=== PATIENT | male | born 1985 | race Two or more races ===

== ENCOUNTER 2016-07-05 06:47 | Emergency (ER) | payer OTHER ==
[~2016-07-05] VITALS: Ht 177.8 cm; Wt 76.2 kg
--- NOTE | 2016-07-05 06:57 | NUR ---
PT AMBULATORY TO ER BED 7 C/O COUGHING, PT ALSO STATES HE HAD 1 BOUT OF VOMITING LAST NIGHT. PT AOX4 RR EVEN AND UNLABORED. NO SOB NOTED. NAD NOTED. NO NVD AT THIS TIME. PT NOT DIAPHORETIC. PT WAITING FOR MD LEGGETT.
[2016-07-05] MEDS ORDERED: ONDANSETRON 4 MG TAB.RAPDIS ONE (07:14)
[2016-07-05] MEDS: ONDANSETRON 4 MG TAB.RAPDIS SL ONE (07:19)
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
[2016-07-05] MEDS ORDERED: GUAIFENESIN/D-METHORPHAN HB 5 ML UDC ONE (08:41)
[2016-07-05] MEDS: GUAIFENESIN/D-METHORPHAN HB 5 ML UDC PO ONE (08:49)
[2016-07-05 08:50] VITALS: BP 121/71
== END 2016-07-05 08:53 | disposition home or self-care (01) ==
LOC: ER 06:52
DX: J06.9 Acute upper respiratory infection, unspecified (principal); F17.210 Nicotine dependence, cigarettes, uncomplicated; J45.909 Unspecified asthma, uncomplicated; F41.9 Anxiety disorder, unspecified
CPT/HCPCS: 82962-TC; A4606; Q0162; Z7610

== ENCOUNTER 2016-11-09 20:41 | Inpatient (IN) | payer OTHER ==
[~2016-11-09] VITALS: Ht 177.8 cm; Wt 76.7 kg
[2016-11-09] MEDS ORDERED: HYDROMORPHONE 1 MG/1 ML DISP.SYRIN ONE (21:17)
[2016-11-09] MEDS ORDERED: ONDANSETRON HCL/PF 4 MG/2 ML VIAL ONE (21:17)
[2016-11-09 21:29] LABS: BASOPHILS # (AUTO) 0.3 /CMM (0.0-0.2); BASOPHILS % (AUTO) 1.4 % (0.0-2.0); EOSINOPHILS # (AUTO) 0.2 /CMM (0.0-0.7); EOSINOPHILS % (AUTO) 0.9 % (0.0-6.0); HEMATOCRIT 47 % (39-51); HEMOGLOBIN 15.8 g/dL (13.5-17.5); LYMPHOCYTES # (AUTO) 3.8 /CMM (0.8-4.8); LYMPHOCYTES % (AUTO) 17.5 % (20.0-44.0); MEAN CORPUSCULAR HEMOGLOBIN 30 PG (26.0-33.0); MEAN CORPUSCULAR HGB CONC 34 g/dl (31.0-36.0); MEAN CORPUSCULAR VOLUME 90 fL (80-96); MONOCYTES # (AUTO) 1.7 /CMM (0.1-1.30); NEUTROPHILS # (AUTO) 15.7 /CMM (1.8-8.9); NEUTROPHILS % (AUTO) 72.2 % (43.0-81.0); PLATELET COUNT (AUTO) 196 /CMM (150-450); RDW COEFFICIENT OF VARIATION 12.2 (11.5-15.0); RED BLOOD CELL COUNT(AUTO) 5.23 MIL/uL (4.5-6.0); WHITE BLOOD COUNT (AUTO) 21.7 K/uL (4.3-11.0)
[2016-11-09] MEDS ORDERED: IV NS 0.9% 1,000 ML BAG IV ONE (21:30)
[2016-11-09] MEDS ORDERED: ONDANSETRON HCL/PF 4 MG/2 ML VIAL IVP ONE (21:30)
[2016-11-09] MEDS ORDERED: HYDROMORPHONE INJ 2 MG/ML DISP.SYRIN IV ONE (21:30)
[2016-11-09 21:39] LABS: CALCIUM, SERUM 8.9 mg/dL (8.5-10.1); CREATININE 1.2 mg/dL (0.6-1.3); INR 1.05 (0.87-1.13); POTASSIUM 4.6 mmol/L (3.5-5.1); PROTHROMBIN TIME 10.9 SECS (9.5-12.7)
[2016-11-09 21:45] LABS: ALBUMIN 4.4 g/dL (3.4-5.0); BILIRUBIN,TOTAL 0.3 mg/dL (0.2-1.0)
[2016-11-09] MEDS ORDERED: IOHEXOL-300 100 ML VIAL IV ONE (21:48)
[2016-11-09] MEDS ORDERED: IV NS 0.9% 250 ML IV ONE (21:48)
[2016-11-09] MEDS ORDERED: PIPERACILLIN /TAZOBACTAM 3.375 G VIAL IV ONE (23:17)
[2016-11-09] MEDS ORDERED: PIPERACILLIN /TAZOBACTAM 3.375 G in IV D5W 50 ML IV ONE (23:30)
[2016-11-10] VITALS (10 sets, daily range): BP systolic 110–126; BP diastolic 53–73
[2016-11-10] MEDS ORDERED: MIDAZOLAM HCL 2 MG/2ML VIAL ONE (00:14)
[2016-11-10] MEDS ORDERED: FENTANYL PF 250MCG/5ML AMPUL ONE (00:14)
[2016-11-10] MEDS ORDERED: ROCURONIUM BROMIDE 50 MG/5 ML ONE ×2 (00:15→02:19)
[2016-11-10] MEDS ORDERED: SUCCINYLCHOLINE CHLORIDE 20 MG/ML VIAL ONE (00:15)
[2016-11-10] MEDS ORDERED: BUPIVACAINE MPF W/EPI 0.25% 30 ML VIAL ONE (00:16)
[2016-11-10] MEDS ORDERED: LIDOCAINE 0.5% HCL 50 ML VIAL ONE (00:16)
[2016-11-10] MEDS ORDERED: FENTANYL PF 100MCG/2ML AMPUL ONE ×2 (01:42→04:29)
[2016-11-10 01:44] LABS: APPEARANCE,URINE CLEAR (CLEAR); BILIRUBIN,URINE NEGATIVE (NEGATIVE); BLOOD, URINE NEGATIVE Ery/uL (NEGATIVE); COLOR,URINE YELLOW (YELLOW); KETONES,URINE 1+ (NEGATIVE); LEUKOCYTE ESTERASE ,URINE NEGATIVE (NEGATIVE); NITRITE, URINE NEGATIVE (NEGATIVE); PH,URINE 5.5 (5.0-8.0); PROTEIN,URINE NEGATIVE (NEGATIVE); UGLUCOSE NEGATIVE (NEGATIVE); UROBILINOGEN,URINE 0.2 EU/dL (0.2)
[2016-11-10 01:52] LABS: BACTERIA,URINE None seen /HPF (None Seen); RBC,URINE NONE SEEN /HPF (0-2); SQUAMOUS EPITHELIAL CELL,UR None Seen /HPF (None Seen); WBC,URINE 0-2 /HPF (0-3)
[2016-11-10] MEDS ORDERED: ANESTHESIA TRAY IN PYXIS 1 EA TRAY MC ONE (04:27)
[2016-11-10] MEDS ORDERED: LORAZEPAM INJ 2 MG/ML VIAL IV PRN (06:00)
[2016-11-10] MEDS ORDERED: HYDROMORPHONE 1 MG/1 ML DISP.SYRIN ONE (06:04)
[2016-11-10] MEDS ORDERED: PIPERACILLIN /TAZOBACTAM 3.375 G VIAL IV ONE (06:05)
[2016-11-10] MEDS: PIPERACILLIN /TAZOBACTAM 3.375 G in IV D5W 50 ML IV SCH ×3 (06:13→18:13)
[2016-11-10] MEDS: HYDROMORPHONE 1 MG/1 ML DISP.SYRIN IV PRN ×5 (06:13→21:52)
[2016-11-10] MEDS ORDERED: IV PREMIX D5 1/2NS + KCL 1,000 ML IV ONE (06:19)
[2016-11-10 06:47] LABS: BASOPHILS # (AUTO) 0.1 /CMM (0.0-0.2); BASOPHILS % (AUTO) 0.6 % (0.0-2.0); EOSINOPHILS % (AUTO) 0.1 % (0.0-6.0); HEMATOCRIT 42 % (39-51); HEMOGLOBIN 14.2 g/dL (13.5-17.5); LYMPHOCYTES # (AUTO) 0.8 /CMM (0.8-4.8); MEAN CORPUSCULAR HEMOGLOBIN 31 PG (26.0-33.0); MEAN CORPUSCULAR HGB CONC 34 g/dl (31.0-36.0); MEAN CORPUSCULAR VOLUME 91 fL (80-96); MONOCYTES # (AUTO) 0.8 /CMM (0.1-1.30); MONOCYTES % (AUTO) 4.3 % (2.0-12.0); NEUTROPHILS # (AUTO) 17.8 /CMM (1.8-8.9); PLATELET COUNT (AUTO) 163 /CMM (150-450); RDW COEFFICIENT OF VARIATION 12.8 (11.5-15.0); RED BLOOD CELL COUNT(AUTO) 4.61 MIL/uL (4.5-6.0); WHITE BLOOD COUNT (AUTO) 19.5 K/uL (4.3-11.0)
[2016-11-10] MEDS: Potassium Chloride 20 MEQ in IV D5/0.45 NACL 1,000 ML IV PRN ×2 (06:49→16:32)
[2016-11-10 07:06] LABS: CALCIUM, SERUM 7.9 mg/dL (8.5-10.1); POTASSIUM 4.4 mmol/L (3.5-5.1)
[2016-11-10] MEDS: PANTOPRAZOLE 40 MG VIAL IV SCH (10:17)
[2016-11-10] MEDS: ONDANSETRON HCL/PF 4 MG/2 ML VIAL IV PRN (12:48)
[2016-11-11] VITALS: BP 126/68
[2016-11-11] MEDS: HYDROMORPHONE 1 MG/1 ML DISP.SYRIN IV PRN ×9 (00:30→22:55)
[2016-11-11] MEDS: PIPERACILLIN /TAZOBACTAM 3.375 G in IV D5W 50 ML IV SCH ×5 (00:30→23:00)
[2016-11-11] MEDS: Potassium Chloride 20 MEQ in IV D5/0.45 NACL 1,000 ML IV PRN ×2 (03:35→14:53)
[2016-11-11 04:00] VITALS: BP 121/78
[2016-11-11 06:43] LABS: BASOPHILS % (AUTO) 0.2 % (0.0-2.0); EOSINOPHILS # (AUTO) 0.1 /CMM (0.0-0.7); EOSINOPHILS % (AUTO) 0.4 % (0.0-6.0); HEMATOCRIT 38 % (39-51); LYMPHOCYTES # (AUTO) 2.3 /CMM (0.8-4.8); LYMPHOCYTES % (AUTO) 16.6 % (20.0-44.0); MEAN CORPUSCULAR HEMOGLOBIN 31 PG (26.0-33.0); MEAN CORPUSCULAR HGB CONC 34 g/dl (31.0-36.0); MEAN CORPUSCULAR VOLUME 91 fL (80-96); MONOCYTES % (AUTO) 7.7 % (2.0-12.0); NEUTROPHILS # (AUTO) 10.3 /CMM (1.8-8.9); NEUTROPHILS % (AUTO) 75.1 % (43.0-81.0); PLATELET COUNT (AUTO) 145 /CMM (150-450); RDW COEFFICIENT OF VARIATION 12.9 (11.5-15.0); RED BLOOD CELL COUNT(AUTO) 4.21 MIL/uL (4.5-6.0); WHITE BLOOD COUNT (AUTO) 13.7 K/uL (4.3-11.0)
[2016-11-11 06:50] LABS: CALCIUM, SERUM 7.8 mg/dL (8.5-10.1); CREATININE 1.1 mg/dL (0.6-1.3)
[2016-11-11 08:00] VITALS: BP 115/67
[2016-11-11] MEDS: PANTOPRAZOLE 40 MG VIAL IV SCH (08:45)
[2016-11-11] MEDS: ENOXAPARIN SODIUM 40 MG/0.4 ML DISP.SYRIN SQ SCH (09:36)
[2016-11-11] MEDS: METOCLOPRAMIDE HCL 10 MG/2 ML VIAL IV SCH ×3 (09:48→20:06)
[2016-11-11 16:00] VITALS: BP 130/63
[2016-11-11 20:00] VITALS: BP 126/74
[2016-11-12] MEDS: HYDROMORPHONE 1 MG/1 ML DISP.SYRIN IV PRN ×9 (01:57→22:13)
[2016-11-12] MEDS: METOCLOPRAMIDE HCL 10 MG/2 ML VIAL IV SCH ×4 (01:59→23:38)
[2016-11-12] MEDS: PIPERACILLIN /TAZOBACTAM 3.375 G in IV D5W 50 ML IV SCH ×4 (06:14→23:39)
[2016-11-12 06:54] LABS: BASOPHILS % (AUTO) 0.2 % (0.0-2.0); EOSINOPHILS # (AUTO) 0.1 /CMM (0.0-0.7); EOSINOPHILS % (AUTO) 1.1 % (0.0-6.0); HEMATOCRIT 38 % (39-51); HEMOGLOBIN 12.7 g/dL (13.5-17.5); LYMPHOCYTES # (AUTO) 2.2 /CMM (0.8-4.8); LYMPHOCYTES % (AUTO) 17.7 % (20.0-44.0); MEAN CORPUSCULAR HEMOGLOBIN 31 PG (26.0-33.0); MEAN CORPUSCULAR HGB CONC 34 g/dl (31.0-36.0); MEAN CORPUSCULAR VOLUME 90 fL (80-96); MONOCYTES % (AUTO) 7.6 % (2.0-12.0); NEUTROPHILS # (AUTO) 9.3 /CMM (1.8-8.9); NEUTROPHILS % (AUTO) 73.4 % (43.0-81.0); PLATELET COUNT (AUTO) 150 /CMM (150-450); RDW COEFFICIENT OF VARIATION 12.7 (11.5-15.0); RED BLOOD CELL COUNT(AUTO) 4.15 MIL/uL (4.5-6.0); WHITE BLOOD COUNT (AUTO) 12.6 K/uL (4.3-11.0)
[2016-11-12 06:58] LABS: CALCIUM, SERUM 8.1 mg/dL (8.5-10.1); CREATININE 0.9 mg/dL (0.6-1.3); MAGNESIUM 1.6 mg/dL (1.8-2.4); POTASSIUM 3.4 mmol/L (3.5-5.1)
[2016-11-12 08:00] VITALS: BP 117/62
[2016-11-12] MEDS ORDERED: POTASSIUM CHLORIDE 10 MEQ/50 ML PREMIXED IVPB FOR PERIPHERAL LINE IV ONE (09:00)
[2016-11-12] MEDS: Potassium Chloride 20 MEQ in IV D5/0.45 NACL 1,000 ML IV PRN ×4 (09:27→21:12)
[2016-11-12] MEDS: ENOXAPARIN SODIUM 40 MG/0.4 ML DISP.SYRIN SQ SCH (09:27)
[2016-11-12] MEDS: PANTOPRAZOLE 40 MG VIAL IV SCH (09:27)
[2016-11-12] MEDS: Magnesium 1GM/D5W 100ML PREMIX 100 ML IV SCH ×2 (09:27→10:47)
[2016-11-12] MEDS: POTASSIUM CL. PREMIX PERIPHER. 50 ML IV SCH ×2 (09:28→10:47)
[2016-11-12 16:00] VITALS: BP 133/79
[2016-11-12 20:11] VITALS: BP 118/71
[2016-11-12 22:00] VITALS: BP 118/71
[2016-11-13] MEDS: HYDROMORPHONE 1 MG/1 ML DISP.SYRIN IV PRN ×10 (00:55→23:44)
[2016-11-13] MEDS: PIPERACILLIN /TAZOBACTAM 3.375 G in IV D5W 50 ML IV SCH ×4 (05:16→23:43)
[2016-11-13] MEDS: METOCLOPRAMIDE HCL 10 MG/2 ML VIAL IV SCH ×4 (05:16→23:43)
[2016-11-13 06:38] LABS: BASOPHILS % (AUTO) 0.4 % (0.0-2.0); EOSINOPHILS # (AUTO) 0.2 /CMM (0.0-0.7); EOSINOPHILS % (AUTO) 2.4 % (0.0-6.0); HEMATOCRIT 40 % (39-51); HEMOGLOBIN 13.4 g/dL (13.5-17.5); LYMPHOCYTES # (AUTO) 2.1 /CMM (0.8-4.8); LYMPHOCYTES % (AUTO) 20.7 % (20.0-44.0); MEAN CORPUSCULAR HEMOGLOBIN 31 PG (26.0-33.0); MEAN CORPUSCULAR HGB CONC 34 g/dl (31.0-36.0); MEAN CORPUSCULAR VOLUME 91 fL (80-96); MONOCYTES # (AUTO) 0.7 /CMM (0.1-1.30); MONOCYTES % (AUTO) 7.2 % (2.0-12.0); NEUTROPHILS # (AUTO) 7.1 /CMM (1.8-8.9); NEUTROPHILS % (AUTO) 69.3 % (43.0-81.0); PLATELET COUNT (AUTO) 179 /CMM (150-450); RDW COEFFICIENT OF VARIATION 12.6 (11.5-15.0); RED BLOOD CELL COUNT(AUTO) 4.35 MIL/uL (4.5-6.0); WHITE BLOOD COUNT (AUTO) 10.3 K/uL (4.3-11.0)
[2016-11-13 06:46] LABS: CALCIUM, SERUM 8.7 mg/dL (8.5-10.1); MAGNESIUM 1.9 mg/dL (1.8-2.4); POTASSIUM 3.8 mmol/L (3.5-5.1)
[2016-11-13 08:00] VITALS: BP 111/58
[2016-11-13] MEDS: PANTOPRAZOLE 40 MG VIAL IV SCH (08:30)
[2016-11-13] MEDS: ENOXAPARIN SODIUM 40 MG/0.4 ML DISP.SYRIN SQ SCH (08:31)
[2016-11-13] MEDS: Potassium Chloride 20 MEQ in IV D5/0.45 NACL 1,000 ML IV PRN ×2 (08:44→23:42)
[2016-11-13 16:04] VITALS: BP 118/66
[2016-11-13 20:07] VITALS: BP 125/79
[2016-11-13 22:00] VITALS: BP 125/79
[2016-11-14] MEDS: HYDROMORPHONE 1 MG/1 ML DISP.SYRIN IV PRN ×8 (03:03→22:40)
[2016-11-14] MEDS: METOCLOPRAMIDE HCL 10 MG/2 ML VIAL IV SCH ×3 (05:45→17:25)
[2016-11-14] MEDS: PIPERACILLIN /TAZOBACTAM 3.375 G in IV D5W 50 ML IV SCH ×3 (05:46→17:25)
[2016-11-14 08:00] VITALS: BP 124/69
[2016-11-14] MEDS: PANTOPRAZOLE 40 MG VIAL IV SCH (08:59)
[2016-11-14] MEDS: ENOXAPARIN SODIUM 40 MG/0.4 ML DISP.SYRIN SQ SCH (09:01)
[2016-11-14] MEDS: ONDANSETRON HCL/PF 4 MG/2 ML VIAL IV PRN (15:00)
[2016-11-14] MEDS: Potassium Chloride 20 MEQ in IV D5/0.45 NACL 1,000 ML IV PRN (15:00)
[2016-11-14 16:00] VITALS: BP 124/74
[2016-11-14 20:00] VITALS: BP_SYST 129; BP_SYST 144; BP_DIAS 77; BP_DIAS 82
[2016-11-14 22:00] VITALS: BP 129/77
[2016-11-15] MEDS: METOCLOPRAMIDE HCL 10 MG/2 ML VIAL IV SCH ×3 (00:04→11:46)
[2016-11-15] MEDS: PIPERACILLIN /TAZOBACTAM 3.375 G in IV D5W 50 ML IV SCH ×3 (00:05→11:46)
[2016-11-15] MEDS: Potassium Chloride 20 MEQ in IV D5/0.45 NACL 1,000 ML IV PRN (01:01)
[2016-11-15] MEDS: HYDROMORPHONE 1 MG/1 ML DISP.SYRIN IV PRN ×7 (01:01→16:20)
[2016-11-15 07:22] LABS: BASOPHILS % (AUTO) 0.3 % (0.0-2.0); EOSINOPHILS # (AUTO) 0.4 /CMM (0.0-0.7); EOSINOPHILS % (AUTO) 3.8 % (0.0-6.0); HEMATOCRIT 42 % (39-51); HEMOGLOBIN 14.1 g/dL (13.5-17.5); LYMPHOCYTES # (AUTO) 1.8 /CMM (0.8-4.8); LYMPHOCYTES % (AUTO) 15.6 % (20.0-44.0); MEAN CORPUSCULAR HEMOGLOBIN 30 PG (26.0-33.0); MEAN CORPUSCULAR HGB CONC 33 g/dl (31.0-36.0); MEAN CORPUSCULAR VOLUME 91 fL (80-96); NEUTROPHILS # (AUTO) 8.1 /CMM (1.8-8.9); NEUTROPHILS % (AUTO) 71.3 % (43.0-81.0); PLATELET COUNT (AUTO) 238 /CMM (150-450); RDW COEFFICIENT OF VARIATION 12.3 (11.5-15.0); RED BLOOD CELL COUNT(AUTO) 4.64 MIL/uL (4.5-6.0); WHITE BLOOD COUNT (AUTO) 11.4 K/uL (4.3-11.0)
[2016-11-15 07:29] LABS: CALCIUM, SERUM 8.7 mg/dL (8.5-10.1); CREATININE 1.1 mg/dL (0.6-1.3); POTASSIUM 4.3 mmol/L (3.5-5.1)
[2016-11-15 08:00] VITALS: BP 120/74
[2016-11-15] MEDS: PANTOPRAZOLE 40 MG VIAL IV SCH (08:43)
[2016-11-15] MEDS: ENOXAPARIN SODIUM 40 MG/0.4 ML DISP.SYRIN SQ SCH (08:52)
[2016-11-15] MEDS ORDERED: HYDR-552 PO (08:55)
[2016-11-15] MEDS: ONDANSETRON HCL/PF 4 MG/2 ML VIAL IV PRN (11:46)
[2016-11-15 16:00] VITALS: BP 129/84
== END 2016-11-15 17:20 | disposition home or self-care (01) | DRG 224 ==
LOC: ER 20:42 → MED 23:12
PROVIDERS: ADMIT Internal Medicine; ATTEND Internal Medicine
DX: K56.2 Volvulus (principal); Q43.3 Congenital malformations of intestinal fixation; D72.829 Elevated white blood cell count, unspecified; F41.9 Anxiety disorder, unspecified; K66.0 Peritoneal adhesions (postprocedural) (postinfection); E83.42 Hypomagnesemia; E87.6 Hypokalemia; J45.909 Unspecified asthma, uncomplicated; K56.7 Ileus, unspecified; F12.90 Cannabis use, unspecified, uncomplicated
CPT/HCPCS: 36415; 74000-TC; 80048-TC; 80076-TC; 81000-TC; 83605-TC; 83690-TC; 83735-TC; 85025-TC; 85730-TC; 86850-TC; 87040-TC; 87081-TC; 94799-TC; A4606; A6209; A6402; C9113; J0330; J1100; J1170; J1650; J1885; J2250; J2405; J2543; J2704; J2710; J2765; J3010; J3475; J3480; J3490; J7030; J7050; J7060; Q9967; Z7610

== ENCOUNTER 2017-08-16 22:12 | Emergency (ER) | payer OTHER ==
[~2017-08-16] VITALS: Ht 177.8 cm; Wt 68.0 kg
[~2017-08-16 22:12] MED LIST: HYDR-552 PO
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
--- NOTE | 2017-08-16 23:20 | NUR ---
BEING SEEN BY
[2017-08-16] MEDS ORDERED: HYDROCODONE/APAP 5/325MG 1 EACH TABLET ONE (23:51)
[2017-08-16] MEDS ORDERED: LORAZEPAM 1 MG TABLET ONE (23:52)
--- NOTE | 2017-08-16 23:59 | NUR ---
ORDERED MEDS GIVEN
--- NOTE | 2017-08-16 23:59 | NUR ---
Pt TAKEN DOWN FOR XR
[2017-08-17] MEDS ORDERED: LORAZEPAM 1 MG TABLET PO ONE
--- NOTE | 2017-08-17 00:50 | NUR ---
Pt RETURNED FROM RADIOLOGY.
--- NOTE | 2017-08-17 01:11 | NUR ---
Pt STATES THAT HIS ANXIETY IS BETTER, BUT THE PAIN IS NOT.
[2017-08-17 01:19] VITALS: BP 119/68
[2017-08-17] MEDS ORDERED: HYDROCODONE/APAP 5/325MG 1 EACH TABLET PO ONE ×2 (02:30)
[2017-08-17] MEDS ORDERED: HYDROCODONE/APAP 5/325MG 1 EACH TABLET ONE (03:01)
--- NOTE | 2017-08-17 03:16 | NUR ---
Patient discharged to home in stable condition. Written and verbal after care instructions given. Patient verbalizes understanding of instruction. sling provided for left arm. pt left with taxi. walked out with steady gait.
== END 2017-08-17 02:51 | disposition home or self-care (01) ==
LOC: ER 22:14
DX: F41.9 Anxiety disorder, unspecified (principal); M79.1 Myalgia; K44.9 Diaphragmatic hernia without obstruction or gangrene; F17.200 Nicotine dependence, unspecified, uncomplicated; V49.59XA Passenger injured in collision with other motor vehicles in traffic accident, initial encounter; Y93.89 Activity, other specified; Y92.413 State road as the place of occurrence of the external cause; Y99.8 Other external cause status
CPT/HCPCS: 70450-TC; 72125-TC; 72128-TC; 73030-TC; 73080-TC; 73502; 73564-TC; A4606; Z7610

== ENCOUNTER 2017-09-20 16:39 | Emergency (ER) | payer OTHER ==
[~2017-09-20] VITALS: Ht 177.8 cm; Wt 68.0 kg
--- NOTE | 2017-09-20 16:45 | NUR ---
LEFT SIDED CHEST PAIN RADIATES TO LEFT ARM SINCE LAST NIGHT. A/OX 4, BREATHING EVEN AND UNLABORED. SKIN WARM AND DRY. NO SOB, NAD, VITALS STABLE. SAFETY AND COMFORT MEASURES IN PLACE. AWAITING MD ORDERS.
[2017-09-20] MEDS ORDERED: ALPRAZOLAM 0.5 MG TABLET ONE (17:26)
[2017-09-20] MEDS ORDERED: ALPRAZOLAM 0.5 MG TABLET PO ONE (17:30)
[2017-09-20 17:41] VITALS: BP 112/64
--- NOTE | 2017-09-20 17:42 | NUR ---
Patient discharged to home in stable condition. Written and verbal after care instructions given. Patient verbalizes understanding of instruction.
== END 2017-09-20 17:41 | disposition home or self-care (01) ==
LOC: ER 16:41
DX: R07.89 Other chest pain (principal); F41.9 Anxiety disorder, unspecified; F17.200 Nicotine dependence, unspecified, uncomplicated; J45.909 Unspecified asthma, uncomplicated; Z60.2 Problems related to living alone
CPT/HCPCS: A4606; Z7610

== ENCOUNTER 2018-08-07 11:48 | Emergency (ER) | payer OTHER ==
[~2018-08-07] VITALS: Ht 172.7 cm; Wt 74.8 kg
[~2018-08-07 11:48] MED LIST changes: +ALPR0.5T8 PO; +CYCL10TA9 PO; +HYDR-4354 PO; -HYDR-552 PO
[2018-08-07] MEDS ORDERED: ALPRAZOLAM 0.5 MG (11:55)
[2018-08-07] MEDS ORDERED: CITALOPRAM HYDROBROMIDE 20 MG (11:55)
[2018-08-07] MEDS ORDERED: D AMPHETAMINE SALT COMBO 20 MG (11:55)
[2018-08-07] MEDS ORDERED: KETOROLAC TROMETHAMINE INJ 30 MG/ML VIAL ONE (12:58)
[2018-08-07] MEDS: KETOROLAC TROMETHAMINE INJ 30 MG/ML VIAL IM ONE (13:00)
[2018-08-07 13:23] VITALS: BP 128/84
--- NOTE | 2018-08-07 13:24 | NUR ---
Patient discharged to home in stable condition. Written and verbal after care instructions given. Patient verbalizes understanding of instruction.
== END 2018-08-07 13:24 | disposition home or self-care (01) ==
LOC: ER 11:51
DX: S44.8X2A Injury of other nerves at shoulder and upper arm level, left arm, initial encounter (principal); S14.8XXA Injury of other specified nerves of neck, initial encounter; J45.909 Unspecified asthma, uncomplicated; F41.9 Anxiety disorder, unspecified; F17.200 Nicotine dependence, unspecified, uncomplicated; Z98.890 Other specified postprocedural states; Z60.2 Problems related to living alone; X58.XXXA Exposure to other specified factors, initial encounter; Y93.89 Activity, other specified; Y92.89 Other specified places as the place of occurrence of the external cause; Y99.8 Other external cause status
CPT/HCPCS: 72050; 73030; 96372; 99283; J1885

== ENCOUNTER 2018-08-12 15:15 | Emergency (ER) | payer OTHER ==
[~2018-08-12] VITALS: Ht 172.7 cm; Wt 66.7 kg
[~2018-08-12 15:15] MED LIST changes: +ALPRAZOLAM 0.5 MG; +CITALOPRAM HYDROBROMIDE 20 MG; +D AMPHETAMINE SALT COMBO 20 MG
[2018-08-12 15:36] VITALS: BP 133/77
== END 2018-08-12 16:21 | disposition home or self-care (01) ==
LOC: ER 15:15
DX: L73.8 Other specified follicular disorders (principal); J06.9 Acute upper respiratory infection, unspecified; J45.909 Unspecified asthma, uncomplicated; F41.9 Anxiety disorder, unspecified; F17.200 Nicotine dependence, unspecified, uncomplicated; F12.10 Cannabis abuse, uncomplicated; Z98.890 Other specified postprocedural states; Z60.2 Problems related to living alone

== ENCOUNTER 2019-10-13 15:11 | Emergency (ER) | payer OTHER ==
[~2019-10-13] VITALS: Ht 170.2 cm; Wt 74.8 kg
[2019-10-13 15:14] VITALS: BP 131/79
[2019-10-13] MEDS ORDERED: ALBUTEROL SULFATE 8 GM HFA.AER.AD IH ONE (16:00)
[2019-10-13] MEDS ORDERED: predniSONE 50 MG TABLET PO ONE (16:00)
[2019-10-13] MEDS ORDERED: predniSONE 20 MG TABLET ONE (16:03)
[2019-10-13] MEDS ORDERED: predniSONE 10 MG TABLET ONE (16:03)
--- NOTE | 2019-10-13 16:40 | NUR ---
Patient discharged to home in stable condition. Written and verbal after care instructions given. Patient verbalizes understanding of instruction. Pt ambulatory with a steady gait
== END 2019-10-13 16:43 | disposition home or self-care (01) ==
LOC: ER 15:11
DX: J45.901 Unspecified asthma with (acute) exacerbation (principal); Z98.890 Other specified postprocedural states; Z60.2 Problems related to living alone; Z79.899 Other long term (current) drug therapy
CPT/HCPCS: 99283; J7512 ×2

== ENCOUNTER 2019-12-27 09:44 | Emergency (ER) | payer OTHER ==
[~2019-12-27] VITALS: Ht 180.3 cm; Wt 74.8 kg
[2019-12-27 09:49] VITALS: BP 162/81
[2019-12-27] MEDS ORDERED: LIDOCAINE 2% 20 ML MDV ONE (09:55)
--- NOTE | 2019-12-27 09:59 | NUR ---
AT [facility]
[2019-12-27] MEDS ORDERED: ALPRAZOLAM 0.5 MG TABLET ONE (10:13)
--- NOTE | 2019-12-27 10:13 | NUR ---
XANAX 0.5MG PO X 1 DOSE ORDERED BY MD. MEDICATION GIVEN PER ORDERED. UNABLE TO ALIN IN [facility].
--- NOTE | 2019-12-27 10:26 | NUR ---
Patient discharged to home in stable condition. Written and verbal after care instructions given. Patient verbalizes understanding of instruction. Pt ambulatory with a steady gait
[2019-12-27] MEDS ORDERED: ALPRAZOLAM 0.5 MG TABLET PO ONE (10:30)
== END 2019-12-27 10:28 | disposition home or self-care (01) ==
LOC: ER 09:49
DX: S01.112A Laceration without foreign body of left eyelid and periocular area, initial encounter (principal); J45.909 Unspecified asthma, uncomplicated; F41.9 Anxiety disorder, unspecified; F17.200 Nicotine dependence, unspecified, uncomplicated; Z60.2 Problems related to living alone; Z79.899 Other long term (current) drug therapy; Z98.890 Other specified postprocedural states; W01.0XXA Fall on same level from slipping, tripping and stumbling without subsequent striking against object, initial encounter; Y93.89 Activity, other specified; Y92.89 Other specified places as the place of occurrence of the external cause; Y99.8 Other external cause status
CPT/HCPCS: 12011; 99283; J3490

== ENCOUNTER 2020-01-02 11:44 | Emergency (ER) | payer OTHER ==
[~2020-01-02] VITALS: Ht 177.8 cm; Wt 74.8 kg
[2020-01-02 12:09] VITALS: BP 123/70
--- NOTE | 2020-01-02 12:30 | NUR ---
SUTURE REMOVED. 1 SUTURE
--- NOTE | 2020-01-02 12:36 | NUR ---
Patient discharged to home in stable condition. Written and verbal after care instructions given. Patient verbalizes understanding of instruction. Pt ambulatory with a steady gait
== END 2020-01-02 12:37 | disposition home or self-care (01) ==
LOC: ER 11:45
DX: S01.112D Laceration without foreign body of left eyelid and periocular area, subsequent encounter (principal); J45.909 Unspecified asthma, uncomplicated; F41.9 Anxiety disorder, unspecified; F12.90 Cannabis use, unspecified, uncomplicated; Z98.890 Other specified postprocedural states; Z60.2 Problems related to living alone; Z79.899 Other long term (current) drug therapy; X58.XXXD Exposure to other specified factors, subsequent encounter

== ENCOUNTER 2020-01-18 10:26 | Emergency (ER) | payer OTHER ==
[~2020-01-18] VITALS: Ht 177.8 cm; Wt 77.1 kg
--- NOTE | 2020-01-18 10:26 | NUR ---
PT BIB SELF C/O LOWER ABDOMINAL PAIN. PT IS AAOX4, NOT IN RESPIRATORY DISTRESS, V/S STABLE, KEPT RESTED AND COMFORTABLE. WILL CONTINUE TO MONITOR.
--- NOTE | 2020-01-18 10:56 | NUR ---
SEEN AND EXAMINED BY .
[2020-01-18] MEDS ORDERED: KETOROLAC TROMETHAMINE INJ 30 MG/ML VIAL IV ONE (11:00)
[2020-01-18] MEDS ORDERED: KETOROLAC TROMETHAMINE 15 MG/ML VIAL ONE (11:08)
--- NOTE | 2020-01-18 11:10 | NUR ---
IV LINE ESTABLISHED BLOOD DRAWN AND SENT TO LAB.
[2020-01-18 11:27] LABS: BASOPHILS # (AUTO) 0.1 /CMM (0.0-0.2); BASOPHILS % (AUTO) 1.7 % (0.0-2.0); EOSINOPHILS % (AUTO) 1.9 % (0.0-6.0); HEMATOCRIT 43 % (39-51); HEMOGLOBIN 14.4 g/dL (13.5-17.5); LYMPHOCYTES # (AUTO) 1.4 /CMM (0.8-4.8); LYMPHOCYTES % (AUTO) 22.4 % (20.0-44.0); MEAN CORPUSCULAR HGB CONC 34 g/dl (31.0-36.0); MEAN CORPUSCULAR VOLUME 96 fL (80-96); MONOCYTES # (AUTO) 0.5 /CMM (0.1-1.30); MONOCYTES % (AUTO) 8.4 % (2.0-12.0); NEUTROPHILS # (AUTO) 4.1 /CMM (1.8-8.9); NEUTROPHILS % (AUTO) 65.6 % (43.0-81.0); PLATELET COUNT (AUTO) 216 /CMM (150-450); RED BLOOD CELL COUNT(AUTO) 4.45 MIL/uL (4.5-6.0); WHITE BLOOD COUNT (AUTO) 6.3 K/uL (4.3-11.0)
[2020-01-18 12:03] LABS: CALCIUM, SERUM 8.6 mg/dL (8.5-10.1); CREATININE 0.9 mg/dL (0.6-1.3); POTASSIUM 3.8 mmol/L (3.5-5.1)
[2020-01-18 12:09] LABS: ALBUMIN 3.9 g/dL (3.4-5.0); BILIRUBIN,DIRECT 0.1 mg/dL (0.0-0.2); BILIRUBIN,TOTAL 0.6 mg/dL (0.2-1.0); TOTAL PROTEIN, SERUM 7.3 g/dL (6.4-8.2)
[2020-01-18] MEDS ORDERED: IOHEXOL-300 100 ML VIAL IV ONE (12:26)
[2020-01-18] MEDS ORDERED: IV NS 0.9% 250 ML IV ONE (12:26)
[2020-01-18] MEDS ORDERED: CT SWABBABLE VALVE TRANS SET 1 EA INFUS.SET MC ONE (12:26)
--- NOTE | 2020-01-18 12:35 | NUR ---
BACK FROM CT SCAN
[2020-01-18] MEDS ORDERED: LIDOCAINE VISCOUS 2% UD 15 ML UDC MM ONE (13:30)
[2020-01-18] MEDS ORDERED: MAG HYDROX/AL HYDROX/SIMETH 30 ML UDC PO ONE (13:30)
[2020-01-18] MEDS ORDERED: LIDOCAINE VISCOUS 2% UD 15 ML UDC ONE (13:44)
[2020-01-18] MEDS ORDERED: MAG HYDROX/AL HYDROX/SIMETH 30 ML UDC ONE (13:44)
[2020-01-18 13:55] VITALS: BP 129/70
--- NOTE | 2020-01-18 13:55 | NUR ---
IV removed. Catheter intact and site benign. Pressure and 4x4 applied to site. No bleeding noted.Patient discharged to home in stable condition. Written and verbal after care instructions given. Patient verbalizes understanding of instruction.
== END 2020-01-18 13:56 | disposition home or self-care (01) ==
LOC: ER 10:28
DX: R10.11 Right upper quadrant pain (principal); R10.12 Left upper quadrant pain; R14.0 Abdominal distension (gaseous); R11.0 Nausea; J45.909 Unspecified asthma, uncomplicated; Z98.890 Other specified postprocedural states; Z60.2 Problems related to living alone; Z79.899 Other long term (current) drug therapy
CPT/HCPCS: 36415; 74177; 80048; 80076; 83690; 85025; 85730; 96374; 99285; J1885; J7050; Q9967

== ENCOUNTER 2020-01-29 16:55 | Emergency (ER) | payer OTHER ==
[~2020-01-29] VITALS: Ht 177.8 cm; Wt 74.8 kg
--- NOTE | 2020-01-29 17:15 | NUR ---
BED 6 PT BIB SELF C/O SOB X1 WEEK. HX OF ASTHMA. VS CHECKED. AWAITING MD LEGGETT.
[2020-01-29] MEDS ORDERED: predniSONE 20 MG TABLET ONE (17:21)
[2020-01-29] MEDS ORDERED: IPRATROPIUM NEB FS 0.5 MG/2.5 ML AMPUL.NEB NEB ONE (17:30)
[2020-01-29] MEDS ORDERED: predniSONE 20 MG TABLET PO ONE (17:30)
[2020-01-29] MEDS ORDERED: ALBUTEROL FS 2.5 MG/3 ML VIAL.NEB NEB ONE (17:30)
[2020-01-29] MEDS ORDERED: IPRATROPIUM NEB FS 0.5 MG/2.5 ML AMPUL.NEB ONE (17:39)
[2020-01-29] MEDS ORDERED: ALBUTEROL FS 2.5 MG/3 ML VIAL.NEB ONE (17:39)
--- NOTE | 2020-01-29 19:04 | NUR ---
DC Patient discharged to home in stable condition. Written and verbal after care instructions given. Patient verbalizes understanding of instruction.
[2020-01-29 19:16] VITALS: BP 122/83
== END 2020-01-29 19:17 | disposition home or self-care (01) ==
LOC: ER 17:01
DX: J45.901 Unspecified asthma with (acute) exacerbation (principal); R05 Cough; Z20.828 Contact with and (suspected) exposure to other viral communicable diseases; F41.9 Anxiety disorder, unspecified; Z79.899 Other long term (current) drug therapy; R94.31 Abnormal electrocardiogram [ECG] [EKG]
CPT/HCPCS: 71045; 87426; 93005; 94640; 99285; C9803; J7512

== ENCOUNTER → 2020-06-21 | Emergency (ER) | payer OTHER ==
[~2020-06-21] VITALS: Ht 175.3 cm; Wt 79.4 kg
[~2020-06-21] MED LIST changes: +IBUPROFEN 600 MG TABLET ONE; +IBUPROFEN 600 MG TABLET PO ONE; +LORA-259 PO; +LORAZEPAM 1 MG TABLET ONE; +LORAZEPAM 1 MG TABLET PO ONE
--- NOTE | 2020-06-21 11:55 | NUR ---
THE PATIENT BIB FOR C/O LT SIDE CP, NON RADIATING SINCE SAT. THE PATIENT IN ROOM AIR AND DENIES SOB. RESPIRATION REGULAR AND UNLABORED. THE PATIENT IS PROVIDED WITH BLANKET FOR COMFORT. WILL CONTINUE TO MONITOR.
--- NOTE | 2020-06-21 12:41 | NUR ---
COVID SWAB DONE AND SENT IT TO THE LAB.
--- NOTE | 2020-06-21 13:57 | NUR ---
received a call from the lab regarding covid result "negative".
[2020-06-21 14:07] VITALS: BP 134/82
--- NOTE | 2020-06-21 14:08 | NUR ---
The patient is alert and oriented x4. Denies pain. In room air and denies SOB. Respiration regular and unlabored. Patient discharged to home in stable condition. Written and verbal after care instructions given. Prescription handed to the patient, education provided and he verbalized understand. Patient verbalizes understanding of instruction. Patient left ER in stable condition.
== END | disposition home or self-care (01) ==
LOC: ER 11:49
DX: R07.89 Other chest pain (principal); F41.9 Anxiety disorder, unspecified; R05 Cough; Z20.822 Contact with and (suspected) exposure to COVID-19; J45.909 Unspecified asthma, uncomplicated; Z79.899 Other long term (current) drug therapy
CPT/HCPCS: 71045; 87426; 93005; 99285; C9803

== ENCOUNTER 2021-07-26 08:44 | Emergency (ER) | payer OTHER ==
[~2021-07-26] VITALS: Ht 177.8 cm; Wt 89.8 kg
[~2021-07-26 08:44] MED LIST changes: -IBUPROFEN 600 MG TABLET ONE; -IBUPROFEN 600 MG TABLET PO ONE; -LORAZEPAM 1 MG TABLET ONE; -LORAZEPAM 1 MG TABLET PO ONE
--- NOTE | 2021-07-26 08:55 | NUR ---
Patient came in to the er c/o sob x 2 days, Hx asthma. On room air, alert and oriented x 4. Coughing. Kept comfortable, will continue to monitor accordingly.
--- NOTE | 2021-07-26 08:59 | NUR ---
Dr. ge at bedside for eval.
[2021-07-26] MEDS ORDERED: GUAIFENESIN LA 600 MG TABLET.SA PO ONE (09:01)
[2021-07-26] MEDS ORDERED: KETOROLAC TROMETHAMINE INJ 30 MG/ML VIAL ONE (09:01)
[2021-07-26] MEDS ORDERED: predniSONE 20 MG TABLET ONE (09:01)
[2021-07-26] MEDS ORDERED: ALBUTEROL FS 2.5 MG/3 ML VIAL.NEB ONE ×2 (09:04→09:24)
[2021-07-26] MEDS: predniSONE 20 MG TABLET PO ONE (09:09)
[2021-07-26] MEDS: GUAIFENESIN LA 600 MG TABLET.SA PO ONE (09:09)
[2021-07-26] MEDS: KETOROLAC TROMETHAMINE INJ 30 MG/ML VIAL IM ONE (09:09)
--- NOTE | 2021-07-26 09:10 | NUR ---
RT at bedside for treatment.
[2021-07-26] MEDS: ALBUTEROL FS 2.5 MG/3 ML VIAL.NEB NEB ONE ×2 (09:21)
[2021-07-26] MEDS: IPRATROPIUM NEB FS 0.5 MG/2.5 ML AMPUL.NEB NEB ONE ×2 (09:21)
[2021-07-26] MEDS ORDERED: IPRATROPIUM NEB FS 0.5 MG/2.5 ML AMPUL.NEB ONE (09:24)
[2021-07-26] MEDS ORDERED: IPRA3AMP23 IH (10:31)
[2021-07-26] MEDS ORDERED: ALBU18HF2 INH (10:31)
[2021-07-26] MEDS ORDERED: AZIT250T PO (10:31)
[2021-07-26] MEDS ORDERED: PRED50TA PO (10:31)
[2021-07-26 10:49] VITALS: BP 161/66
--- NOTE | 2021-07-26 10:50 | NUR ---
Patient discharged to home in stable condition. Written and verbal after care instructions given. Patient verbalizes understanding of instruction.
== END 2021-07-26 10:50 | disposition home or self-care (01) ==
LOC: ER 08:48
DX: J45.909 Unspecified asthma, uncomplicated (principal); F41.9 Anxiety disorder, unspecified; F17.200 Nicotine dependence, unspecified, uncomplicated; Z87.19 Personal history of other diseases of the digestive system; Z90.49 Acquired absence of other specified parts of digestive tract; Z87.798 Personal history of other (corrected) congenital malformations; Z79.51 Long term (current) use of inhaled steroids; Z79.52 Long term (current) use of systemic steroids; Z79.891 Long term (current) use of opiate analgesic; Z79.899 Other long term (current) drug therapy
CPT/HCPCS: 93005; 94640 ×2; 96372; 99284; J1885; J7512 ×2

== ENCOUNTER 2021-08-02 20:59 | Emergency (ER) | payer OTHER ==
[~2021-08-02] VITALS: Ht 177.8 cm; Wt 79.8 kg
[~2021-08-02 20:59] MED LIST changes: +ALBU18HF2 INH; +AZIT250T PO; +IPRA3AMP23 IH; +PRED50TA PO
--- NOTE | 2021-08-02 21:37 | NUR ---
PT BIBSELF C/O GROIN PAIN THAT RADIATES TO LEGS X1 DAY. PT AAOX4 BREATHING EVENLY AND UNLABORED. PT ATTACHED TO MONITOR AND POX. PT GIVEN BLANKET AND CALL LIGHT WITHIN REACH
[2021-08-02] MEDS ORDERED: KETOROLAC TROMETHAMINE INJ 30 MG/ML VIAL ONE (22:17)
[2021-08-02] MEDS ORDERED: KETOROLAC TROMETHAMINE INJ 60 MG/2 ML VIAL IM ONE (22:30)
--- NOTE | 2021-08-02 22:30 | NUR ---
urine sent to lab
[2021-08-02 22:52] LABS: BILIRUBIN,URINE NEGATIVE (NEGATIVE); COLOR,URINE YELLOW (YELLOW); LEUKOCYTE ESTERASE ,URINE NEGATIVE (NEGATIVE); NITRITE, URINE NEGATIVE (NEGATIVE); PROTEIN,URINE NEGATIVE (NEGATIVE); UGLUCOSE NEGATIVE (NEGATIVE); UROBILINOGEN,URINE 0.2 EU/dL (0.2)
[2021-08-02] MEDS ORDERED: IBUP-1955 PO (23:15)
--- NOTE | 2021-08-02 23:22 | NUR ---
Patient discharged to home in stable condition. Written and verbal after care instructions given. Patient verbalizes understanding of instruction. PT ambulatory with a steady gait
[2021-08-02 23:28] VITALS: BP 130/76
== END 2021-08-02 23:22 | disposition home or self-care (01) ==
LOC: ER 21:08
DX: N43.3 Hydrocele, unspecified (principal); J45.909 Unspecified asthma, uncomplicated; F41.9 Anxiety disorder, unspecified; F17.200 Nicotine dependence, unspecified, uncomplicated; Z87.19 Personal history of other diseases of the digestive system; Z60.2 Problems related to living alone; Z79.899 Other long term (current) drug therapy
CPT/HCPCS: 76870; 81003; 87491; 87591; 96372; 99284; J1885

== ENCOUNTER 2022-07-19 15:09 | Emergency (ER) | payer OTHER ==
[~2022-07-19] VITALS: Ht 177.8 cm; Wt 81.6 kg
[~2022-07-19 15:09] MED LIST changes: +IBUP-1955 PO
[2022-07-19] MEDS ORDERED: LORAZEPAM INJ 2 MG/ML VIAL IV ONE (16:00)
[2022-07-19] MEDS ORDERED: KETOROLAC TROMETHAMINE INJ 30 MG/ML VIAL IV ONE (16:00)
[2022-07-19 16:04] LABS: BASOPHILS # (AUTO) 0.2 K/uL (0.0-0.2); BASOPHILS % (AUTO) 1.5 % (0.0-2.0); EOSINOPHILS % (AUTO) 1.2 % (0.0-6.0); HEMATOCRIT 46 % (39-51); HEMOGLOBIN 15.4 g/dL (13.5-17.5); LYMPHOCYTES # (AUTO) 2.5 K/uL (0.8-4.8); LYMPHOCYTES % (AUTO) 22.9 % (20.0-44.0); MEAN CORPUSCULAR HGB CONC 34 g/dl (31.0-36.0); MEAN CORPUSCULAR VOLUME 92 fL (80-96); MONOCYTES # (AUTO) 0.7 K/uL (0.1-1.30); MONOCYTES % (AUTO) 6.1 % (2.0-12.0); NEUTROPHILS # (AUTO) 7.4 K/uL (1.8-8.9); NEUTROPHILS % (AUTO) 68.3 % (43.0-81.0); PLATELET COUNT (AUTO) 224 K/uL (150-450); RED BLOOD CELL COUNT(AUTO) 4.99 MIL/uL (4.5-6.0); WHITE BLOOD COUNT (AUTO) 10.8 K/uL (4.3-11.0)
[2022-07-19] MEDS ORDERED: KETOROLAC TROMETHAMINE 15 MG/ML VIAL ONE (16:18)
[2022-07-19] MEDS ORDERED: LORAZEPAM INJ 2 MG/ML VIAL ONE (16:20)
[2022-07-19 16:22] LABS: CALCIUM, SERUM 8.2 mg/dL (8.5-10.1); CARBON DIOXIDE 29 mmol/L (21-32); CHLORIDE 107 mmol/L (98-107); CREATININE 1.4 mg/dL (0.6-1.3); GLUCOSE 90 mg/dL (74-106); SODIUM SERUM 141 mmol/L (136-145); UREA NITROGEN, BLOOD 12 mg/dL (7-18)
[2022-07-19] MEDS ORDERED: ALPR0.5T PO (17:23)
[2022-07-19 17:41] VITALS: BP 121/85
== END 2022-07-19 17:41 | disposition home or self-care (01) ==
LOC: ER 15:13
DX: R07.89 Other chest pain (principal); J45.909 Unspecified asthma, uncomplicated; F41.9 Anxiety disorder, unspecified; F17.200 Nicotine dependence, unspecified, uncomplicated; Z98.890 Other specified postprocedural states; Z79.899 Other long term (current) drug therapy; Z60.2 Problems related to living alone
CPT/HCPCS: 99285; 96374; 71045; 96375; 93005; 85025; 80048; 36415; 84484; J2060; J1885

== ENCOUNTER 2023-04-30 18:12 | Emergency (ER) | payer MEDICAID, OTHER ==
[~2023-04-30] VITALS: Ht 177.8 cm; Wt 88.5 kg
[~2023-04-30 18:12] MED LIST changes: +ALPR0.5T PO
[2023-04-30] MEDS ORDERED: methylPREDNISolone SOD SUCC 125 MG/2ML VIAL IV ONE (18:30)
[2023-04-30] MEDS ORDERED: IPRATROPIUM NEB FS 0.5 MG/2.5 ML AMPUL.NEB NEB ONE (18:30)
[2023-04-30] MEDS ORDERED: ALBUTEROL FS 2.5 MG/3 ML VIAL.NEB NEB ONE (18:30)
[2023-04-30] MEDS ORDERED: ALBUTEROL FS 2.5 MG/3 ML VIAL.NEB ONE (18:33)
[2023-04-30] MEDS ORDERED: IPRATROPIUM NEB FS 0.5 MG/2.5 ML AMPUL.NEB ONE (18:33)
[2023-04-30 18:36] VITALS: O2SAT 99
[2023-04-30 18:45] VITALS: O2SAT 100
[2023-04-30] MEDS ORDERED: methylPREDNISolone SOD SUCC 125 MG/2ML VIAL ONE (19:10)
[2023-04-30] MEDS ORDERED: Magnesium 1GM/D5W 100ML PREMIX 100 ML IV ONE (19:10)
[2023-04-30] MEDS ORDERED: KETOROLAC TROMETHAMINE INJ 30 MG/ML VIAL ONE (19:10)
[2023-04-30 19:25] LABS: CALCIUM, SERUM 8.7 mg/dL (8.5-10.1); CREATININE 1.1 mg/dL (0.6-1.3); POTASSIUM 3.8 mmol/L (3.5-5.1)
[2023-04-30 19:28] LABS: BASOPHILS # (AUTO) 0.1 K/uL (0.0-0.2); BASOPHILS % (AUTO) 0.7 % (0.0-2.0); EOSINOPHILS % (AUTO) 0.3 % (0.0-6.0); HEMATOCRIT 42 % (39-51); LYMPHOCYTES # (AUTO) 1.1 K/uL (0.8-4.8); LYMPHOCYTES % (AUTO) 8.8 % (20.0-44.0); MEAN CORPUSCULAR HEMOGLOBIN 30 PG (26.0-33.0); MEAN CORPUSCULAR HGB CONC 33 g/dl (31.0-36.0); MEAN CORPUSCULAR VOLUME 91 fL (80-96); MONOCYTES # (AUTO) 0.9 K/uL (0.1-1.30); MONOCYTES % (AUTO) 6.9 % (2.0-12.0); NEUTROPHILS # (AUTO) 10.5 K/uL (1.8-8.9); NEUTROPHILS % (AUTO) 83.3 % (43.0-81.0); PLATELET COUNT (AUTO) 216 K/uL (150-450); RED BLOOD CELL COUNT(AUTO) 4.62 MIL/uL (4.5-6.0); WHITE BLOOD COUNT (AUTO) 12.6 K/uL (4.3-11.0)
[2023-04-30] MEDS ORDERED: Magnesium 1GM/D5W 100ML PREMIX 200 ML IV ONE (19:30)
[2023-04-30] MEDS ORDERED: KETOROLAC TROMETHAMINE INJ 30 MG/ML VIAL IM ONE (19:30)
[2023-04-30 19:33] LABS: ALBUMIN 3.9 g/dL (3.4-5.0); BILIRUBIN,DIRECT 0.1 mg/dL (0.0-0.2); BILIRUBIN,TOTAL 0.3 mg/dL (0.2-1.0); TOTAL PROTEIN, SERUM 7.3 g/dL (6.4-8.2)
[2023-04-30] MEDS ORDERED: ALBU2.5V13 NEB (19:39)
[2023-04-30 20:11] VITALS: BP 103/69; TEMP 98.4; O2SAT 100
== END 2023-04-30 20:11 | disposition home or self-care (01) ==
LOC: ER 18:16
DX: J45.901 Unspecified asthma with (acute) exacerbation (principal); F41.9 Anxiety disorder, unspecified; F17.200 Nicotine dependence, unspecified, uncomplicated; Z60.2 Problems related to living alone; Z79.899 Other long term (current) drug therapy
CPT/HCPCS: 99284; 96365; 71045; 96375; 85025; 80048; 80076; 36415; 94799; 94640; 96372; J2930; J1885; J3475

== ENCOUNTER 2023-10-28 12:01 | Emergency (ER) | payer MEDICAID ==
[~2023-10-28] VITALS: Ht 175.3 cm; Wt 81.6 kg
[~2023-10-28 12:01] MED LIST changes: +ALBU2.5V13 NEB; +CYCL5TAB PO
[2023-10-28 12:13] VITALS: TEMP 98.7
[2023-10-28] MEDS ORDERED: ONDANSETRON HCL/PF 4 MG/2 ML VIAL ONE (12:35)
[2023-10-28] MEDS ORDERED: MORPHINE SULFATE INJ 4 MG/ML DISP.SYRIN ONE (12:35)
[2023-10-28] MEDS: ONDANSETRON HCL/PF - ER 4 MG/2 ML VIAL IV ONE (12:37)
[2023-10-28] MEDS: MORPHINE SULFATE INJ 2 MG/ML DISP.SYRIN IV ONE (12:40)
[2023-10-28] MEDS ORDERED: PROPOFOL 20 ML IV ONE ×2 (13:35→14:08)
[2023-10-28] MEDS: PROPOFOL 200 MG/20 ML VIAL IV ONE ×2 (14:00→14:10)
[2023-10-28] MEDS ORDERED: KETO10TA2 PO (14:53)
[2023-10-28] MEDS ORDERED: ACET-2605 PO (14:53)
[2023-10-28] MEDS ORDERED: HYDROCODONE/APAP 10/325MG TABLET ONE (14:55)
[2023-10-28] MEDS: HYDROCODONE/APAP 10/325MG TABLET PO ONE (14:56)
[2023-10-28 15:19] VITALS: BP 125/75; O2SAT 100
== END 2023-10-28 15:10 | disposition home or self-care (01) ==
LOC: ER 12:06
DX: S52.592A Other fractures of lower end of left radius, initial encounter for closed fracture (principal); J45.909 Unspecified asthma, uncomplicated; Z98.890 Other specified postprocedural states; F17.200 Nicotine dependence, unspecified, uncomplicated; Z79.1 Long term (current) use of non-steroidal anti-inflammatories (NSAID); Z79.891 Long term (current) use of opiate analgesic; Z60.2 Problems related to living alone; W17.89XA Other fall from one level to another, initial encounter; Y93.51 Activity, roller skating (inline) and skateboarding; Y92.89 Other specified places as the place of occurrence of the external cause; Y99.8 Other external cause status
CPT/HCPCS: 25605; 99285; 99152; 73090; 73110; 96375; 73100; 96374; J2704 ×2; J2270; J2405 ×2; G0500

== ENCOUNTER 2024-01-20 20:07 | Emergency (ER) | payer MEDICAID ==
[~2024-01-20] VITALS: Ht 175.3 cm; Wt 86.2 kg
[~2024-01-20 20:07] MED LIST changes: +ACET-2605 PO; +KETO10TA2 PO
[2024-01-20] MEDS ORDERED: ALPRAZOLAM 0.5 MG TABLET ONE (21:10)
[2024-01-20] MEDS: ALPRAZOLAM 0.5 MG TABLET PO ONE (21:13)
[2024-01-20 21:15] LABS: BASOPHILS # (AUTO) 0.1 K/uL (0.0-0.2); BASOPHILS % (AUTO) 0.8 % (0.0-2.0); EOSINOPHILS % (AUTO) 0.3 % (0.0-6.0); HEMATOCRIT 46 % (39-51); HEMOGLOBIN 15.6 g/dL (13.5-17.5); LYMPHOCYTES # (AUTO) 3.3 K/uL (0.8-4.8); LYMPHOCYTES % (AUTO) 21.7 % (20.0-44.0); MEAN CORPUSCULAR HEMOGLOBIN 31 PG (26.0-33.0); MEAN CORPUSCULAR HGB CONC 34 g/dl (31.0-36.0); MEAN CORPUSCULAR VOLUME 92 fL (80-96); MONOCYTES % (AUTO) 6.2 % (2.0-12.0); NEUTROPHILS # (AUTO) 10.9 K/uL (1.8-8.9); PLATELET COUNT (AUTO) 301 K/uL (150-450); RED BLOOD CELL COUNT(AUTO) 4.97 MIL/uL (4.5-6.0); RED CELL DISTRIBUTION WIDTH 12.9 % (11.5-15.0); WHITE BLOOD COUNT (AUTO) 15.3 K/uL (4.3-11.0)
[2024-01-20 21:21] LABS: CALCIUM, SERUM 9.4 mg/dL (8.5-10.1); CARBON DIOXIDE 25 mmol/L (21-32); CHLORIDE 100 mmol/L (98-107); CREATININE 1.1 mg/dL (0.6-1.3); GLUCOSE 106 mg/dL (74-106); POTASSIUM 3.6 mmol/L (3.5-5.1); SODIUM SERUM 135 mmol/L (136-145); UREA NITROGEN, BLOOD 10 mg/dL (7-18)
[2024-01-20] MEDS ORDERED: dexAMETHasone 1 MG TABLET ONE (21:44)
[2024-01-20] MEDS: dexAMETHasone 1 MG TABLET PO ONE (21:44)
[2024-01-20] MEDS ORDERED: dexAMETHasone 4 MG TABLET ONE (21:44)
[2024-01-20] MEDS: ALBUTEROL FS 2.5 MG/3 ML VIAL.NEB NEB ONE (21:44)
[2024-01-20] MEDS ORDERED: ALBUTEROL FS 2.5 MG/3 ML VIAL.NEB ONE (21:48)
[2024-01-20 21:50] VITALS: O2SAT 98
[2024-01-20 22:05] VITALS: O2SAT 99
[2024-01-20 22:18] VITALS: BP 136/84; TEMP 99.6; O2SAT 98
== END 2024-01-20 22:18 | disposition home or self-care (01) ==
LOC: ER 20:09
DX: R07.9 Chest pain, unspecified (principal); F41.0 Panic disorder [episodic paroxysmal anxiety]; J45.901 Unspecified asthma with (acute) exacerbation; F17.200 Nicotine dependence, unspecified, uncomplicated; R00.2 Palpitations; R20.2 Paresthesia of skin; F41.9 Anxiety disorder, unspecified; F12.10 Cannabis abuse, uncomplicated; Z79.52 Long term (current) use of systemic steroids; Z60.2 Problems related to living alone
CPT/HCPCS: 99285; 71045; 93005; 85025; 80048; 36415; 84484; 94799; 94640; J8540 ×2

== ENCOUNTER 2024-12-06 10:28 | Emergency (ER) | payer MEDICAID ==
[~2024-12-06] VITALS: Ht 175.3 cm; Wt 86.2 kg
[2024-12-06] MEDS ORDERED: ALBUTEROL FS 2.5 MG/3 ML VIAL.NEB ONE (10:59)
[2024-12-06] MEDS ORDERED: IPRATROPIUM NEB FS 0.5 MG/2.5 ML AMPUL.NEB ONE (10:59)
[2024-12-06 11:04] VITALS: O2SAT 96
[2024-12-06] MEDS: IPRATROPIUM NEB FS 0.5 MG/2.5 ML AMPUL.NEB NEB ONE (11:04)
[2024-12-06] MEDS: ALBUTEROL FS 2.5 MG/3 ML VIAL.NEB CONTNEB ONE (11:04)
[2024-12-06 11:15] VITALS: O2SAT 99
[2024-12-06] MEDS ORDERED: ALBU2.5V13 NEB (11:33)
[2024-12-06] MEDS ORDERED: PRED50TA PO (11:33)
[2024-12-06 11:41] VITALS: BP 126/72; TEMP 98.7; O2SAT 99
== END 2024-12-06 11:41 | disposition home or self-care (01) ==
LOC: ER 10:43
DX: J45.901 Unspecified asthma with (acute) exacerbation (principal); F41.9 Anxiety disorder, unspecified; F17.210 Nicotine dependence, cigarettes, uncomplicated; Z79.52 Long term (current) use of systemic steroids; Z60.2 Problems related to living alone; Z79.899 Other long term (current) drug therapy
CPT/HCPCS: 99283; 99406; 94640; J7512